=== PATIENT | female | born 1970 | race Caucasian/White ===

== ENCOUNTER 2024-02-07 08:52 | Day surgery (SDC) | payer OTHER ==
[~2024-02-07] VITALS: Ht 157.5 cm; Wt 87.6 kg
[~2024-02-07 08:52] MED LIST: LR 1,000 ML IV SCH; Meclizine 25 MG TAB PO SCH
[2024-02-07] MEDS ORDERED: Rocuronium 50 MG/5 ML Multi-Dose VIAL ONE (08:59)
[2024-02-07] MEDS ORDERED: fentaNYL 50 MCG/ML 2 ML VIAL ONE ×3 (08:59→12:17)
[2024-02-07] MEDS ORDERED: Midazolam 2 MG/2 ML VIAL ONE (08:59)
[2024-02-07] MEDS ORDERED: PEPCID40 MG PO (09:26)
[2024-02-07] MEDS ORDERED: ULTRAM 50MG TAB50 MG PO (09:26)
[2024-02-07] MEDS ORDERED: Scopolamine 1 MG Delivered 3-Day PATCH TD SCH (09:30)
[2024-02-07 09:56] VITALS: BP 150/82; PULSE 73; TEMP 98.3
[2024-02-07] MEDS ORDERED: Indocyanine Green 12.5 MG in Water For Injection,Sterile 2.5 ML IV ONE (10:00)
[2024-02-07] MEDS ORDERED: Topical Skin Adhesive 1 EACH (1 ML) TOP ONE (11:48)
[2024-02-07] MEDS ORDERED: NORCO 325 MG-51 TAB PO (12:15)
[2024-02-07] MEDS ORDERED: Ondansetron 4 MG/2 ML VIAL IV PRN ×2 (12:30→12:45)
[2024-02-07] MEDS ORDERED: Ibuprofen 600 MG TAB PO PRN (12:30)
[2024-02-07] MEDS ORDERED: fentaNYL 50 MCG/ML 1 ML SYRINGE/VIAL [PACU/SDC ONLY] IV PRN (12:45)
[2024-02-07] MEDS ORDERED: hydrALAZINE 20 MG/ML 1 ML VIAL IV PRN (12:45)
[2024-02-07] MEDS ORDERED: HYDROmorphone 1 MG/1 ML SYRINGE [PACU/SDC ONLY] IV PRN (12:45)
[2024-02-07 13:20] VITALS: BP 127/70; PULSE 80; TEMP 97.4
[2024-02-07 13:24] VITALS: TEMP 97.4
--- NOTE | 2024-02-07 13:30 | NUR ---
1320: PT TO BAY 6 PER CART FROM PACU. REPORT RECEIVED FROM MATTHEW CERDA. VSS. ALERT AND ORIENTED. BREATHING EVEN AND UNLABORED. 4 BANDAIDS NOTED TO ABD C/D/I. PT DENIES NAUSEA AND REQUESTING MUFFIN AND PEPSI. C/O GAS PAIN. REQUESTING PAIN MEDICATION. NO FURTHER NEEDS NOTED. RESTING IN COT. CALL LIGHT IN REACH. MARAL JONES, AT BEDSIDE.
[2024-02-07 13:35] VITALS: BP 132/67; PULSE 86
[2024-02-07 13:50] VITALS: BP 123/65; PULSE 77
--- NOTE | 2024-02-07 13:51 | NUR ---
1335: PT ALERT AND ORIENTED. VSS. TOLERATING PEPSI AND MUFFIN. DENIES NAUSEA. PRN NORCO GIVEN ORDERED FOR PAIN. NO FURTHER NEEDS NOTED. RESTING IN COT. CALL LIGHT IN REACH. MARAL JONES, AT BEDSIDE. 1350: PT ALERT AND ORIENTED. VSS. DENIES PAIN AND NAUSEA. NO FURTHER NEEDS NOTED. RESTING IN COT. CALL LIGHT IN REACH. MARAL JONES, AT BEDSIDE.
--- NOTE | 2024-02-07 14:08 | NUR ---
1355: DISCHARGE EDUCATION COMPLETED. PT STATED UNDERSTANDING OF HOME AND FOLLOW-UP CARE. DISCHARGE PAPERWORK GIVEN TO PT. IV DC'D AT THIS TIME. PT DENIES ANY ASSISTANCE DRESSING. 1405: PT AMBULATED INDEPENDENTLY FROM COT TO WHEELCHAIR. PT DC'D TO HOME W/ FAMILY PER PERSONAL VEHICLE.
== END 2024-02-07 14:05 | disposition home or self-care (01) ==
LOC: SDCO 08:52
DX: K80.12 Calculus of gallbladder with acute and chronic cholecystitis without obstruction (principal); Z79.899 Other long term (current) drug therapy
CPT/HCPCS: J1170; J2250; J2704; J3010; J7120